=== PATIENT | male | born 1970 | race Caucasian/White ===

== ENCOUNTER 2023-10-11 11:58 | Emergency (ER) | payer OTHER ==
[~2023-10-11] VITALS: Ht 167.6 cm; Wt 72.6 kg
[2023-10-11 12:11] VITALS: BP 91/60; PULSE 86; RESP 18; TEMP 97.6; O2SAT 97
[2023-10-11 13:31] LABS: ANION GAP 8.2 (8-16); CALCIUM 9.1 mg/dL (8.5-10.1); CARBON DIOXIDE 31.8 mmol/L (21-32); CREATININE 0.9 mg/dL (0.6-1.3)
[2023-10-11 13:32] LABS: HEMATOCRIT 42.7 % (36-52); HEMOGLOBIN 14.1 g/dL (12.0-18.0); MEAN CORPUSCULAR HEMOGLOBIN 27 pg (27-31); MEAN CORPUSCULAR HGB CONC 33 g/dL (33-37); PLATELET COUNT (AUTO) 371 K/uL (140-450); RED BLOOD CELL COUNT(AUTO) 5.21 MIL/uL (4.20-6.10); RED CELL DISTRIBUTION WIDTH 13.4 % (11.6-13.7); WHITE BLOOD COUNT (AUTO) 24.3 K/uL (4.8-10.8)
[2023-10-11 13:41] LABS: ALANINE AMINOTRANSFERASE 33 U/L (12-78); ALBUMIN 3.5 g/dL (3.4-5.0); ALKALINE PHOSPHATASE 128 U/L (50-136); ASPARTATE AMINOTRANSFERASE 21 U/L (15-37); CREATINE KINASE, TOTAL 59 U/L (39-308); LIPASE 23 U/L (16-77); TOTAL PROTEIN, SERUM 7.9 g/dL (6.4-8.2)
[2023-10-11 13:42] LABS: TOTAL BILIRUBIN 0.2 mg/dL (0.0-1.0)
[2023-10-11 13:54] LABS: APPEARANCE,URINE CLEAR (CLEAR); BILIRUBIN,URINE NEGATIVE (NEGATIVE); BLOOD, URINE NEGATIVE (NEGATIVE); COLOR,URINE YELLOW (YELLOW); LEUKOCYTE ESTERASE ,URINE NEGATIVE (NEGATIVE); NITRITE, URINE NEGATIVE (NEGATIVE); PH,URINE 6.5 (5.0-9.0); PROTEIN,URINE NEGATIVE (NEGATIVE); UGLUCOSE NEGATIVE (NEGATIVE); UROBILINOGEN,URINE 0.2 EU/dL (0.2 - 1)
[2023-10-11 13:55] LABS: LYMPHOCYTES % (MANUAL) 19 % (20-46); MONOCYTES % (MANUAL) 5 % (5-12)
[2023-10-11 13:56] LABS: EOSINOPHILS % (MANUAL) 4 % (0-4)
[2023-10-11] MEDS ORDERED: IBUP-2213 PO (14:57)
[2023-10-11] MEDS ORDERED: CIPR500T4 PO (14:57)
[2023-10-11] MEDS: NACL 0.9% 1,000 ML IV SCH (15:04)
[2023-10-11 16:30] VITALS: BP 102/74; PULSE 73; RESP 16; O2SAT 99
== END 2023-10-11 16:30 | disposition home or self-care (01) ==
LOC: MED 11:58
DX: R19.7 Diarrhea, unspecified (principal); R10.12 Left upper quadrant pain
CPT/HCPCS: 36415; 71045; 74176; 80048; 80076; 81003; 82550; 83605; 83690; 84484; 85025; 87040; 87086; 93005; 96360; 99285; J7030

== ENCOUNTER 2023-10-19 08:48 | Emergency (ER) | payer OTHER ==
[~2023-10-19] VITALS: Ht 167.6 cm; Wt 72.6 kg
[~2023-10-19 08:48] MED LIST: CIPR500T4 PO; IBUP-2213 PO
[2023-10-19 08:51] VITALS: BP 94/64; PULSE 95; RESP 18; TEMP 97.4; O2SAT 96
[2023-10-19 11:12] LABS: BASOPHILS # (AUTO) 0.1 K/uL (0.00-0.22); BASOPHILS % (AUTO) 0.5 % (0.0-2.0); EOSINOPHILS # (AUTO) 1.2 K/uL (0-0.4); EOSINOPHILS % (AUTO) 5.5 % (0.0-4.0); HEMATOCRIT 43.6 % (36-52); HEMOGLOBIN 14.5 g/dL (12.0-18.0); LYMPHOCYTES # (AUTO) 4.4 K/uL (2.0-11.5); LYMPHOCYTES % (AUTO) 20.4 % (20.5-51.1); MEAN CORPUSCULAR HEMOGLOBIN 27 pg (27-31); MEAN CORPUSCULAR HGB CONC 33 g/dL (33-37); MEAN CORPUSCULAR VOLUME 81.4 fL (80-94); MONOCYTES # (AUTO) 1.8 K/uL (0.8-1.0); MONOCYTES % (AUTO) 8.1 % (1.7-9.3); NEUTROPHILS # (AUTO) 14.2 K/uL (1.8-7.7); NEUTROPHILS % (AUTO) 65.5 % (42.2-75.2); PLATELET COUNT (AUTO) 383 K/uL (140-450); RED BLOOD CELL COUNT(AUTO) 5.36 MIL/uL (4.20-6.10); RED CELL DISTRIBUTION WIDTH 13.4 % (11.6-13.7); WHITE BLOOD COUNT (AUTO) 21.7 K/uL (4.8-10.8)
[2023-10-19 11:36] LABS: CARBON DIOXIDE 30.8 mmol/L (21-32); POTASSIUM 3.8 mmol/L (3.5-5.1)
[2023-10-19 11:40] LABS: ALBUMIN 3.3 g/dL (3.4-5.0); TOTAL BILIRUBIN 0.2 mg/dL (0.0-1.0); TOTAL PROTEIN, SERUM 7.8 g/dL (6.4-8.2)
[2023-10-19] MEDS ORDERED: CIPROFLOXACIN 400 MG/200ML-D5W 200 ML IV ONE (15:47)
[2023-10-19] MEDS ORDERED: metroNIDAZOLE 500 MG/NS PREMIX 100 ML IV ONE (15:48)
[2023-10-19] MEDS: metroNIDAZOLE 500 MG/NS PREMIX 100 ML IV ONE (16:13)
[2023-10-19] MEDS: CIPROFLOXACIN 400 MG/200ML-D5W 200 ML IV ONE (17:12)
[2023-10-19 19:53] VITALS: BP 102/71; PULSE 83; RESP 17; TEMP 98.7; O2SAT 94
== END 2023-10-19 18:21 | disposition short-term general hospital (02) ==
LOC: MED 08:48
DX: K52.9 Noninfective gastroenteritis and colitis, unspecified (principal); Z20.822 Contact with and (suspected) exposure to COVID-19
CPT/HCPCS: 36415; 74174; 80048; 80076; 83605; 83690; 85025; 87040; 87045; 87426; 87427; 96365; 99285; J0744; J3490; Q9967